=== PATIENT | female | born 1990 | race Caucasian/White ===

== ENCOUNTER → 2023-12-26 | Outpatient (CLI) | payer OTHER ==
--- NOTE | 2023-12-29 12:45 | MR ---
EXAMINATION TYPE: MR brain wo/w con DATE OF EXAM: 12/26/2023 COMPARISON: None HISTORY: Uncontrolled headaches with pressure x3 weeks, Neck and head pain, dizziness CONTRAST: Performed utilizing 7 mL intravenous Gadavist gadolinium contrast. TECHNIQUE: Multiplanar, multiecho imaging on a 3.0 Janie magnet is performed through the brain. Stud y is performed within 24 hours of arrival to the hospital. The craniovertebral junction is normal. The pituitary is normal. Diffusion-weighted imaging is performed. No abnormal hyperintensity is present to suggest an acute i ntracranial infarct or acute ischemic change. No suspicious punctate hyperintensities correlate with typical findings for migraine headaches. Signa l within the brain appears unremarkable. Ventricles and sulci are appropriate for the patient age. No abnormal enhancement evident. Small retention cyst within the inferior left maxillary sinus. Minimal mucosal thickening within the bilateral maxillary sinuses and through the ethmoid air cells. Very minimal mucosal thickening is not excluded from the sphenoid sinuses. Retention cysts within the posterior left sphenoid sinus. Air-fl uid levels not excluded. No suspicious air-fluid levels are evident. Mastoid air cells are clear. IMPRESSION: 1. No acute intracranial process. 2. Minimal mucosal thickening within scattered paranasal sinuses. Consider chronic sinusitis. 3. Air-fluid level within the left sphenoid sinus. Acute sphenoid sinusitis is not excluded.
== END | disposition home or self-care (01) ==
LOC: RADMRIMAIN 11:06
PROVIDERS: ATTEND Family Medicine
DX: J34.89 Other specified disorders of nose and nasal sinuses (principal); H53.8 Other visual disturbances; M54.2 Cervicalgia; R42 Dizziness and giddiness
CPT/HCPCS: 70553; A9585